=== PATIENT | female | born 1975 | race Caucasian/White ===

== ENCOUNTER 2020-08-15 09:55 | Observation (INO) ==
[2020-08-15 10:34] LABS: Hematocrit 45.6 % (35.3-44.9); Hemoglobin 14.9 g/dL (11.5-15.4); Mean Corpuscular HGB Conc 32.7 g/dL (31.6-35.5); Mean Corpuscular Hemoglobin 29.7 pg (28.0-33.3); Mean Platelet Volume 8.9 fL (9.4-12.4); Platelet Count 482 K/mcL (140-400); Red Blood Count 5.01 M/mcL (3.82-4.97); Red Cell Distribution Width 13.8 % (11.5-14.5); White Blood Count 11.6 K/mcL (4.3-11.1)
[2020-08-15] MEDS ORDERED: *HR* HYDROmorphone (PF) 1 MG/ML SYRINGE IVP ONE (10:35)
[2020-08-15] MEDS ORDERED: Ondansetron 4 MG/2 ML VIAL IVP ONE (10:35)
[2020-08-15 10:55] LABS: Alanine Aminotransferase 123 Units/L (7-52); Albumin 4.3 g/dL (3.5-5.7); Albumin/Globulin Ratio 1.2 (1.1-2.2); Alkaline Phosphatase 289 Units/L (34-104); Aspartate Amino Transferase 142 Units/L (13-39); BUN/Creatinine Ratio 21 (6-26); Bilirubin,Direct 0.2 mg/dL (0.0-0.2); Bilirubin,Indirect 0.4 mg/dL (0.0-1.0); Bilirubin,Total 0.6 mg/dL (0.3-1.0); Blood Urea Nitrogen 14 mg/dL (6-20); Calcium 10.1 mg/dL (8.6-10.3); Carbon Dioxide 32 mEq/L (23-29); Chloride 97 mEq/L (98-107); Globulin 3.6 g/dL (2.4-3.5); Glucose 137 mg/dL (70-105); Lipase 33 Units/L (11-82); Osmolality,Calculated 283 (280-300); Potassium 3.9 mEq/L (3.5-5.1); Sodium 135 mEq/L (136-145); Total Protein 7.9 g/dL (6.4-8.9); eGFR For African Americans > 60 (> 60); eGFR For Non-African Americans > 60 (> 60)
[2020-08-15 10:57] LABS: Bilirubin,Urine Negative (Negative); Blood,Urine Negative (Negative); Clarity,Urine Clear (Clear); Color,Urine Yellow (Yellow); Glucose,Urine (UA) Normal (Normal); Ketones,Urine Negative (Negative); Leukocyte Esterase,Urine Trace (Negative); Nitrite,Urine Negative (Negative); PH,Urine 5.5 pH Units (5.0-8.0); Protein,Urine Negative (Neg-Trace); Specific Gravity,Urine >= 1.030 (1.010-1.025); Urobilinogen,Urine Normal (Normal)
[2020-08-15 10:57] LABS: Eosinophils # 0.2 K/mcL (0.0-0.6); Lymphocytes # 5.1 K/mcL (0.6-4.6); Monocytes # 0.9 K/mcL (0.0-1.3); Neutrophils # 5.3 K/mcL (1.6-8.9); Platelet Estimate Increased (Normal); Reactive Lymphocytes Present (Not Present)
[2020-08-15 11:11] LABS: Bacteria,Urine Few per hpf (None-Few); Mucus,Urine Few per lpf (None-Few); Squamous Epithelial Cell,Urine Few per hpf (None-Few)
[2020-08-15] MEDS ORDERED: 0.9 % Sodium Chloride 1,000 ML IVC ONE (11:27)
[2020-08-15] MEDS ORDERED: *HR* OxyCODONE Immed Rel 5 MG TABLET PO PRN (16:19)
[2020-08-15] MEDS ORDERED: *HR* Midazolam HCl 2 MG/2 ML VIAL ONE (16:23)
[2020-08-15] MEDS ORDERED: Lidocaine -MPF 2% 2 ML VIAL ONE (16:23)
[2020-08-15] MEDS ORDERED: *HR* Propofol 200 MG/20 ML VIAL IVP ONE (16:23)
[2020-08-15] MEDS ORDERED: *HR* FentaNYL (PF) 100 MCG/2 ML VIAL ONE (16:23)
[2020-08-15] MEDS ORDERED: Ondansetron 4 MG/2 ML VIAL ONE (16:23)
[2020-08-15] MEDS ORDERED: Lidocaine -MPF 4% 5 ML AMPUL ONE (16:23)
[2020-08-15] MEDS ORDERED: *HR* HYDROMORPHONE 2 MG/ML VIAL ONE (16:25)
[2020-08-15] MEDS ORDERED: Isovue-300 50ML VIAL ONE ×2 (16:35→17:24)
[2020-08-15] MEDS ORDERED: Sugammadex Sodium 200 MG/2 ML VIAL IV ONE (16:51)
[2020-08-15] MEDS: *HR* HYDROmorphone PF 0.5 MG/0.5 ML SYRINGE IVP PRN ×2 (18:07→18:15)
[2020-08-15] MEDS ORDERED: Ondansetron 4 MG/2 ML VIAL IVP PRN (18:48)
[2020-08-15] MEDS ORDERED: ALPRAZolam 0.5 MG TABLET PO PRN (18:48)
[2020-08-15] MEDS: Methylphenidate HCl 10 MG TABLET PO SCH (20:18)
[2020-08-15] MEDS: Pregabalin 50 MG CAPSULE PO SCH (20:18)
[2020-08-15] MEDS: *HR* OxyCODONE/APAP 5/325 TABLET PO PRN (20:25)
[2020-08-15] MEDS ORDERED: Albuterol 2.5 MG/3 ML NEBULIZER IH ONE (21:25)
[2020-08-15] MEDS ORDERED: Albuterol 2.5 MG/3 ML NEBULIZER IH PRN (21:25)
[2020-08-15] MEDS: Ketorolac 15 MG/ML VIAL IVP SCH (23:47)
[2020-08-15] MEDS: Ampicillin/Sulbactam 3,000 MG in 0.9 % Sodium Chloride Mini Bag 100 ML IVPB SCH (23:47)
[2020-08-16] MEDS: Ketorolac 15 MG/ML VIAL IVP SCH ×2 (06:22→12:14)
[2020-08-16] MEDS: Ampicillin/Sulbactam 3,000 MG in 0.9 % Sodium Chloride Mini Bag 100 ML IVPB SCH ×2 (06:22→12:14)
[2020-08-16] MEDS: Methylphenidate HCl 10 MG TABLET PO SCH (07:54)
[2020-08-16] MEDS: Pregabalin 50 MG CAPSULE PO SCH (07:54)
[2020-08-16 10:07] VITALS: BP 110/68
[2020-08-16] MEDS: *HR* OxyCODONE/APAP 5/325 TABLET PO PRN (10:11)
== END 2020-08-16 13:58 | disposition home or self-care (01) ==
LOC: EMEROOARM 09:55 → 3ANU 09:55
PROVIDERS: ADMIT Surgery; ATTEND Surgery